=== PATIENT | male | born 1945 | race Caucasian/White ===

== ENCOUNTER 2016-06-03 15:13 | Emergency (ER) | payer OTHER ==
[2016-06-03 15:58] LABS: ARTERIAL BLD GAS O2 SATURATION 99.6 % (94-98); ARTERIAL BLOOD GAS BASE EXCESS 2.1 mmol/L (-2.0-3.0); ARTERIAL BLOOD GAS HCO3 25.3 mmol/L (22-26); ARTERIAL BLOOD GAS PCO2 35.8 mmHg (35-48); ARTERIAL BLOOD GAS pH 7.46 (7.35-7.45)
[2016-06-03 16:07] LABS: BASO % 0.1 % (0.2-1.2); EOS % 0.2 % (0.8-7.0); GRAN # 14.5 10_X3_uL (1.8-5.4); GRAN % 92.7 % (34.0-67.9); HEMATOCRIT 35.7 % (40-51); HEMOGLOBIN 11.6 g/dL (13.7-17.5); LYMPH # 0.6 10_X3_uL (1.3-3.6); MEAN CORPUSCULAR HEMOGLOBIN 26.7 pg (27.0-33.0); MEAN CORPUSCULAR HGB CONC 32.5 g/dL (32.0-36.0); MEAN CORPUSCULAR VOLUME 82.1 fL (79-92); MEAN PLATELET VOLUME 9.3 fl (7.5-11.5); MONO # 0.5 10_X3_uL (0.3-0.8); PLATELET COUNT 182 x10_3/uL (163-337); RED BLOOD COUNT 4.35 x10_6/uL (4.6-6.1); RED CELL DISTRIBUTION WIDTH 17.5 % (11.6-14.4); WHITE BLOOD COUNT 15.7 x10_3/uL (4.2-9.1)
[2016-06-03 16:24] LABS: ALBUMIN 2.1 gm/dL (3.4-5.0); BILIRUBIN,TOTAL 0.32 mg/dL (0.0-1.0); CALCIUM 8.4 mg/dL (8.7-10.7); CREATININE 4.1 mg/dL (0.6-1.3); MAGNESIUM 2.1 mg/dL (1.8-2.4); TOTAL PROTEIN 4.9 gm/dL (6.4-8.2)
[2016-06-03 16:30] LABS: POTASSIUM 4.7 mmol/L (3.5-5.1)
[2016-06-03 16:51] LABS: PROTHROMBIN TIME (PATIENT) > 93.60 SECONDS (9.9-11.1)
[2016-06-03 16:53] LABS: INR > 8.6 (0.9-1.1); PARTIAL THROMBOPLASTIN TIME 114.1 SECONDS (21.3-29.3)
== END 2016-06-03 21:25 | disposition short-term general hospital (02) ==
LOC: ER 15:13
PROVIDERS: Emergency Medicine
DX: E87.1 Hypo-osmolality and hyponatremia (principal); R56.9 Unspecified convulsions; Z99.2 Dependence on renal dialysis; Z79.899 Other long term (current) drug therapy; Z79.4 Long term (current) use of insulin; Z79.01 Long term (current) use of anticoagulants
CPT/HCPCS: 36415; 36600; 70450; 71010; 80053; 82550; 82553; 82803; 83605; 83735; 85025; 85610; 85730; 87040; 93005; 99284; 99285-25